=== PATIENT | female | born 1960 | race American Indian/Alaskan Native ===

== ENCOUNTER 2016-12-07 23:03 | Emergency (ER) | payer SELFPAY ==
[2016-12-08 01:32] VITALS: BP 187/88
== END 2016-12-08 03:00 | disposition left against medical advice (07) ==
LOC: ED 23:03
DX: R51 Headache (principal); R42 Dizziness and giddiness; Z53.21 Procedure and treatment not carried out due to patient leaving prior to being seen by health care provider